=== PATIENT | female | born 1965 | race Caucasian/White ===

== ENCOUNTER 2022-03-01 15:45 | Outpatient (CLI) | payer OTHER, SELFPAY ==
--- NOTE | 2022-03-01 16:00 | CRLHL7_ITS ---
For Patients: As a result of the Century Cures Act, medical imaging exams and procedure reports are released immediately into your electronic medical record. You may view this report before your referring provider. If you have questions, please contact your health care provider. INDICATION: Postmenopausal bleeding TECHNIQUE: Ultrasound pelvis transabdominal and transvaginal for better assessment or to better visualize the endometrium. Real time sonographic images with Spectral and color Doppler imaging of the ovaries were obtained. COMPARISON: None FINDINGS: Uterus: 9.0 centimeter x 4.9 centimeter x 5.5 centimeter normal echotexture of the myometrium. No masses. Endometrium: Transvaginal imaging was performed to better evaluate the endometrium. 4 millimeters in thickness. No sign of endometrial mass or fluid. Right ovary: Not visualized Left ovary: Not visualized. Cul-de-sac: No significant free fluid. IMPRESSION: Unremarkable pelvic ultrasound. The ovaries are not visualized. Dictated by Camacho Pollard MD @ 03/01/2022 4:53:41 PM (Electronically Signed)
== END 2022-03-01 15:46 | disposition home or self-care (01) ==
PROVIDERS: Visit Provider Obstetrics & Gynecology
DX: N95.0 Postmenopausal bleeding (principal)
CPT/HCPCS: 76830; 76856

== ENCOUNTER 2022-08-27 08:11 | Day surgery (SDC) | payer OTHER, SELFPAY ==
[2022-08-26 12:44] VITALS: BP 144/81; PULSE 56; RESP 16; TEMP 35.8
[2022-08-27] VITALS (26 sets, daily range): BP systolic 77–141; BP diastolic 50–86; PULSE 40–89; RESP 16–100; TEMP 35.8–37.1; O2SAT 96–100; BMI 28.8
[2022-08-27] MEDS: CELECOXIB 200 MG CAPSULE PO (08:34)
[2022-08-27] MEDS: OXYCODONE (CR) 10 MG TAB.ER.12H PO (08:34)
[2022-08-27] MEDS: LACTATED RINGERS 1000 ML 1,000 ML 100 ML IV (08:35)
[2022-08-27] MEDS: ACETAMINOPHEN 500 MG TABLET 1000 MG PO ×3 (08:51→21:56)
[2022-08-27] MEDS: SODIUM CHLORIDE 0.9 % (FLUSH) 10 ML SYRINGE IVF (08:51)
[2022-08-27] MEDS: fentaNYL 100 MCG/2 ML inj IVP (09:28)
[2022-08-27] MEDS: MIDAZOLAM HCL 1 MG/ML inj IVP (09:28)
--- NOTE | 2022-08-27 09:32 | SUR.PREOP ---
TIME?OUT:?09 PT/RN/MDA?VERIFICATION?OF?SURGICAL?SITE left Knee,?PROCEDURE nerve block,?AND?CONSENT OBTAINED?PRIOR?TO?INVASIVE?PROCEDURE.
--- NOTE | 2022-08-27 10:11 | W.ANESCHARGE ---
Anesthesia Charges Start Date/Time Anesthesia Start Date: 08/27/22 Anesthesia Start Time: 09:39 Stop Date/Time Anesthesia Stop Date: 08/27/22 Anesthesia Stop Time: 12:08
--- NOTE | 2022-08-27 10:53 | P.NB_ITS ---
Nerve Block Nerve Block Time Seen by Provider: 09:29 Date Seen: 08/27/22 Type of block requested by surgeon for post-operative analgesia: adductor canal Side: left Time out performed: Yes Verification of patient name: Yes Verification of date of : Yes Site marking: site marked Name of person performing procedure: Bj Continuous monitoring Was continuous monitoring of O2 sat, B/P, alarm security or surveillance monitor, recorded every 15 minutes?: Yes Procedure Checklist: sterile prep, needles and gloves Ultrasound guided. Images saved: Yes Medications given in 5ml increments after negative aspiration: Ropivicaine %: 0.5 mL: 20 Needle gauge: 20 Decadron (mg): 10 Precedex (mcg): 25 Patient tolerated procedure well: Yes Additional comments: Needle noted adjacent to nerve Block Charges Block Charge (with Pro Fee): Femoral Nerve Use of Ultrasound Machine for Block: Yes- US Guidance/pain block
--- NOTE | 2022-08-27 10:54 | W.PM.NB ---
Nerve Block Nerve Block Time Seen by Provider: 09:29 Date Seen: 08/27/22 Type of block requested by surgeon for post-operative analgesia: geniculars Side: left Time out performed: Yes Verification of patient name: Yes Verification of date of : Yes Site marking: site marked Name of person performing procedure: Bj Continuous monitoring Was continuous monitoring of O2 sat, B/P, hand thermal cutter, recorded every 15 minutes?: Yes Procedure Checklist: sterile prep, needles and gloves Medications given in 5ml increments after negative aspiration: Ropivicaine %: 0.5 mL: 9 Needle gauge: 25 Patient tolerated procedure well: Yes Block Charges Block Charge (with Pro Fee): Genicular Nerve Block Use of Ultrasound Machine for Block: No
--- NOTE | 2022-08-27 11:05 | CRLHL7_ITS ---
For Patients: As a result of the Cures Act, medical imaging exams and procedure reports are released immediately into your electronic medical record. You may view this report before your referring provider. If you have questions, please contact your health care provider. Indication: postop TKA Technique: Two views left knee Findings/Impression: Hardware from a left total knee arthroplasty is in satisfactory position. Bone alignment is normal. No sign of acute fracture. Postop changes are within normal limits. Dictated by Camacho Goldman MD @ 08/27/2022 12:49:40 PM (Electronically Signed)
--- NOTE | 2022-08-27 11:07 | P.ORPRC_ITS ---
Procedure Note Date of procedure: 08/27/22 Procedure: PREOPERATIVE DIAGNOSIS: Left knee osteoarthritis POSTOPERATIVE DIAGNOSIS: Left knee osteoarthritis NAME OF OPERATION: Left total knee arthroplasty SURGEON: Mo Bazan MD STOCKROOM SELECTOR: Sarah Powell PA-C, ARVIND Conklin ANESTHESIA: Spinal ESTIMATED BLOOD LOSS: 0 mL COMPLICATIONS: None SPECIMENS: None DRAINS: None PREOPERATIVE ANTIBIOTICS: Ancef 2 grams IMPLANTS: 1. J&J Attune # 5 posterior stabilized femur 2. # 5 fixed-bearing tibia 3. # 5 posterior stabilized, 8 mm fixed-bearing polyethylene 4. 38 patella INDICATIONS: The patient is a 56-year-old with a longstanding history of severe, unrelenting left knee pain secondary to end-stage (grade IV) left knee osteoarthritis. Despite appropriate nonoperative management, including activity modification, anti-inflammatories, [id number] pain medication, bracing, p hysical therapy, and injections they continue to have pain and disability. Operative intervention was offered. The risks, benefits and expected outcomes were discussed in detail. These included but were not limited to: Infection, bleeding, injury to blood vessel or nerve, venous thromboembolism. All questions were answered to their satisfaction. Use of an volunteer services assistant was necessary throughout the case for patient positioning and safety, soft tissue retraction, and closure. PROCEDURE: Spinal anesthesia was administered. The patient was placed supine on the operating table. The volunteer services assistant made sure the patient was positioned appropriately. The lower extremity was prepped and draped in the usual sterile fashion. The limb was exsanguinated with the Dominic bandage. The pneumatic tourniquet was inflated to 300 mmHg. A standard anterior incision was made with the knee in flexion. Subcutaneous dissection was sharply taken through fascial layer #1. Full-thickness medial and lateral flaps were elevated. The volunteer services assistant retracted the soft tissues and protected them throughout the case. A standard medial parapatellar approach was made. The patella was everted. The infrapatellar fat pad was preserved. The menisci and cruciate ligaments were sharply d?brided. Marginal osteophytes were d?brided with the rongeur. The drill was used to penetrate the femoral canal. The canal was aspirated and irrigated with pulse lavage. The intramedullary femoral guide was placed for a 5-degree valgus cut, removing 12 mm off the distal femur. The saw was used to make the cut. Whitesides line and the trans epicondylar axis were marked. The femoral sizing guide was pinned onto the distal femur. Three degrees of external rotation nicely parallels the transepicondylar axis. Pins were placed for posterior referencing. The four-in-one cutting guide was pinned onto the distal femur. The anterior, posterior, and chamfer cuts were made. The volunteer services assistant protected the collateral ligaments. The box cutting guide was pinned. The box cuts were made. The boxed trial was placed and was an excellent fit. Drill holes for the lugs were made. Attention was then turned to the proximal tibia. The extramedullary tibial guide was placed for a neutral varus/valgus cut with 5 degrees of posterior slope, removing 2 mm based off the medial tibial surface. The volunteer services assistant protected the collateral ligaments and the neurovascular bundle. The saw was used to make the cut. Trial components were placed. The knee was nicely balanced in both flexion and extension. The trial components were removed. The tray was placed in appropriate rotation, parallel to our tibial cutting pins. It was pinned by the volunteer services assistant and the drill and the punch were used. The tray was removed. The punch was used again. We placed a bone plug in the femoral canal. Attention was then turned to the patella. [place] patellar thickness was 25 mm. The lobster claw resection guide was used with the 9.5 mm sherly. The saw was used to make the cut. Drill holes were made by the volunteer services assistant. The trial was placed and was an excellent fit. Cancellous surfaces were irrigated with pulse lavage and thoroughly dried by the volunteer services assistant. We cemented the tibial component, then the femoral component. We impacted the 8 mm polyethylene onto the tibial tray. The knee was brought into full extension. We then cemented the patellar component. Excessive cement was removed. The cement was allowed to harden. The knee was taken through a range of motion and was found to be nicely balanced in both flexion and extension. The patella tracks centrally. The volunteer services assistant did a three minute dilute Betadine solution soak. The volunteer services assistant irrigated the wound with 3 liters of normal saline via pulse lavage. The volunteer services assistant reapproximated the extensor mechanism with #1 Vicryl in an interrupted [id number] fashion. The volunteer services assistant then ran the extensor mechanism with a #1 PDO Stratafix. The volunteer services assistant closed the subcutaneous tissues with a 3-0 Stratafix and the skin with a running 3-0 Stratafix in a subcuticular fashion. Glue was used to seal the skin. The volunteer services assistant placed a dry dressing, LUCHO stocking, and Polar Care. Sponge and needle counts were correct x2. The patient tolerated the procedure well. There were no apparent complications. They were carefully transferred to the hospital bed and taken to the postanesthesia care unit in satisfactory condition. PLAN: The patient will be mobilized with physical therapy. Makes will be used for DVT prophylaxis. They will be discharged to home once medically appropriate.
--- NOTE | 2022-08-27 12:06 | W.ANESCHARGE ---
Anesthesia Charges Start Date/Time Anesthesia Start Date: 08/27/22 Anesthesia Start Time: 09:39 Stop Date/Time Anesthesia Stop Date: 08/27/22 Anesthesia Stop Time: 12:08
[2022-08-27] MEDS: LACTATED RINGERS 1000 ML 1,000 ML IV (13:20)
--- NOTE | 2022-08-27 13:23 | P.IMCN_ITS ---
Date of Consult Patient: Other ([place], [place]) Consult date: 08/27/22 Requesting Physician: Orthopedics ([place]) Primary Care Provider: Francisca Lopez MD Consult Narrative Reason for consult: medical management, h/o anemia Narrative: Glenna Santacruz is a 56 year old female who underwent an elective left total knee arthroplasty for severe osteoarthritis today by Dr. Bazan. In the PACU she tells me she had been feeling well and had very little pain, but now it is starting to ramp up a bit. Upon sitting up in the bed here in [facility], he suddenly felt lightheaded. Her systolic blood pressure had been running in the 110s and was noted to have dropped into the 50s to 70s and her heart rate had dropped down into the 40s. Her nurse laid her back down and her systolic blood pressure has improved into the 110s again and her heart rate is now in the high 50s. She is already feeling better, back to herself. Review of Systems Status of ROS: Reports: 10 or more systems reviewed and unremarkable except as noted in History and below PFSH PFS Medical History (Updated 08/27/22 @ 13:45 by Deanna Monroe MD) Postmenopausal bleeding ?N95.0 - Postmenopausal bleeding (ICD-10) Chronic GERD ?K21.9 - Gastro-esophageal reflux disease without esophagitis (ICD-10) Anemia ?D64.9 - Anemia, unspecified (ICD-10) Surgical History (Updated 08/27/22 @ 13:43 by Deanna Monroe MD) H/O colonoscopy ?Z98.890 - Other specified postprocedural states (ICD-10) Status post left knee replacement (08/27/22) ?Z96.652 - Presence of left artificial knee joint (ICD-10) Status post right knee replacement (11/07/20) ?Z96.651 - Presence of right artificial knee joint (ICD-10) Family History Mother Brain aneurysm Cancer High blood pressure Hypothyroidism Father Diabetes Heart disease Emphysema lung COPD (chronic obstructive pulmonary disease) Parkinsons disease Myocardial infarction High blood pressure High cholesterol Maternal Grandfather Myocardial infarction Paternal Grandfather Cancer Myocardial infarction Social History (Updated 08/27/22 @ 13:40 by Deanna Monroe MD) Narrative: Life partner of 30 years, Jose, they recently got engaged. Quit smoking 13 years ago. About 10 pack year h/o tob use. EtOH: social 2-3 drinks on the weekends. Denies recreational drug use. Smoking Status: Former smoker What tobacco products do you use: cigarettes Smoking packs per day: 0.33 Smoking cigarettes per day: 6.6 Years smoked: 25 Smoking pack-years: 8.25 Smoking quit date/years: <= 15 years ago Do you use any of these nicotine containing products: None Second hand tobacco smoke exposure: No How often do you have a drink containing alcohol: 2-4 times a month Alcohol type: wine and hard liquor How many standard drinks containing alcohol do you have on a typical day: 1 or 2 How often do you have six or more drinks on one occasion: Never AUDIT-C Alcohol total score: 2 Non-prescribed substance use: denies use Caffeine: Yes (coffee, 2 cups/day; occ pop) service: No Meds Home Medications and Allergies Home Medications Medication Instructions Recorded Confirmed Type acetaminophen 500 mg tablet 500 mg PO Q4H PRN 11/02/21 08/27/22 History magnesium oxide 400 mg (241.3 mg 400 mg PO DAILY 11/02/21 08/27/22 History magnesium) tablet multivitamin 1 tab PO QAM 11/02/21 08/27/22 History aspirin 81 mg tablet,delayed 81 mg PO .qhs 11/05/21 08/27/22 History release famotidine 10 mg tablet 10 mg PO DAILY 08/26/22 08/27/22 History ibuprofen 200 mg tablet 200 mg PO PRN PRN 08/26/22 08/27/22 History Allergies Allergy/AdvReac Type Severity Reaction Status Date / Time No Known Allergies Allergy Verified 08/27/22 08:38 Exam Narrative: Exam Narrative: General: No acute distress. Awake alert oriented x3. I was in the room fairly immediately after this episode began and she appeared pale at 1st, but her color returned rapidly. HEENT: Normocephalic atraumatic, pupils equally round and reactive to light and accommodation. Oropharynx clear. Mucous membranes are slightly dry. Cardiovascular: Bradycardic, regular. No murmurs, gallops, or rubs. Chest: No increased work of breathing. Clear to auscultation bilaterally. No crackles or wheezes. Abdomen: Bowel sounds present. Soft, nondistended, nontender. No hepatosplenomegaly or masses. Extremities: Left knee bandage is clean, dry, and intact. There is no ecchymosis, no edema. Skin: No mottling. No jaundice, no rashes. Neuro: Grossly intact. No focal deficits. Const: Vital Signs, click to edit/add: Vital Signs - 24 hr 08/27/22 08:43 08/27/22 09:28 08/27/22 09:34 Temperature 97.2 F L Pulse Rate 84 68 57 L Respiratory Rate 16 16 16 Blood Pressure 134/74 140/78 H 141/77 H Pulse Oximetry 98 100 100 Oxygen Delivery Me thod Room Air Nasal Cannula Nasal Cannula Oxygen Flow Rate 2 2 08/27/22 12:05 08/27/22 12:10 08/27/22 12:15 Temperature 98.5 F Pulse Rate 61 56 L 53 L Respiratory Rate 16 16 18 Blood Pressure 113/73 111/79 106/86 Pulse Oximetry 96 97 98 Oxygen Delivery Me thod Room Air Oxygen Flow Rate 08/27/22 12:20 08/27/22 12:25 08/27/22 12:30 Temperature 97.5 F L Pulse Rate 53 L 51 L 58 L Respiratory Rate 16 17 16 Blood Pressure 105/77 102/81 114/71 Pulse Oximetry 100 98 98 Oxygen Delivery Me thod Room Air Oxygen Flow Rate 08/27/22 12:35 Temperature 97.5 F L Pulse Rate 63 Respiratory Rate 18 Blood Pressure 114/70 Pulse Oximetry 100 Oxygen Delivery Me thod Room Air Oxygen Flow Rate Labs Labs: Ordering Physician: Mo Bazan M.D. Date of Service: 08/27/22 Procedure(s): XR knee LT 2V Accession Number(s): [id number] cc: Francisca Lopez M.D.; Mo Bazan M.D.~ For Patients: As a result of the 21st Century Cures Act, medical imaging exams and procedure reports are released immediately into your electronic medical record. You may view this report before your referring provider. If you have questions, please contact your health care provider. Indication: postop TKA Technique: Two views left knee Findings/Impression: Hardware from a left total knee arthroplasty is in satisfactory position. Bone alignment is normal. No sign of acute fracture. Postop changes are within normal limits. Dictated by Camacho Goldman MD @ 08/27/2022 12:49:40 PM (Electronically Signed) Assessment and Plan Assessment and plan (1) Status post left knee replacement: Problem comment: - 08/27/22 - continue routine postop cares - VTE prophylaxis with twice a day low-dose aspirin, Jan's toes, and in the hospital, SCDs Status: Acute (2) Osteoarthritis of left knee: Status: Chronic (3) Gastroesophageal reflux disease: Problem comment: - continue OTC famotidine Status: Chronic (4) Vasovagal episode: Problem comment: - sudden episode of hypotension and bradycardia causing lightheadedness while sitting up postoperatively, this resolved quickly, most consistent with vasovagal episode. - I have ordered a fluid bolus and monitor on telemetry and frequent postop blood pressures Status: Acute
[2022-08-27] MEDS: LACTATED RINGERS 1000 ML 1,000 ML 75 ML IV (14:27)
[2022-08-27] MEDS: CEFAZOLIN 2 GM in 0.9 % SODIUM CHLORIDE Mini-bag 100 ML IVPB ×2 (16:17→23:28)
--- NOTE | 2022-08-27 16:30 | PC.NURSE ---
Pt arrived to Med/Surg room 280 in her hospital bed from PACU at 1244 s/p LTKA with Dr. Bazan. Initial assessment from PACU completed by primary RN. Pt A& O with significant other Jose present at bedside. Please see frequent post op Vs per protocol. Pt's bp fell to 77/50 with slight elevation of bed at 1300 with HR of 40. RN recked VS in 3 minutes @ 1303 and bp 58/40 and HR 37, HOB down, pt remained A & O, talkative. Dr. Monroe called into room d/to hypotensive episode for assessment of pt. BP @ 1307 70/40 with HR of 40. New order to initiate 1000 cc LR bolus over 1 hour with current maintenance fluids. BP slowed a steady increase after bolus, however at 1430 during PT evaluation pt's bp was 81/50 during exercises, pt was incontinent of urine, linens changed per [employer] and [facility] PT, pericares provided. Recheck of bp @ 1445 was 107/79. Report provided to oncoming shift who will monitor BP readings on this patient. LR @ 75cc/hr infusing. Advanced to regular diet. Knee control on bed locked out,bed alarm engaged per safety protocol, bilateral teds and plexipulses removed prior to shift change@ 1445pm. Cryocuff in place and mepilex drsg remains CDI. Pt did exercises with PT, she was unable to get up into recliner d/to complaint of numb buttocks an drop in BP.
[2022-08-27] MEDS: OXYCODONE 5 MG TABLET PO ×2 (16:33→21:57)
[2022-08-27] MEDS: SENNOSIDES 1 TAB TABLET 2 TAB PO (21:57)
[2022-08-27] MEDS: ASPIRIN 81 MG TABLET EC PO (21:58)
--- NOTE | 2022-08-27 22:47 | PC.NURSE ---
End of Shift: Pt pleasant and cooperative throughout shift. Incontinent with urine while regaining feeling back post op. Tolerated ambulation with walker, gait belt, and SBA x 1 well to and from restroom. One episode of vomiting during ambulation to bathroom. BP 120/71 once returned to bed. Nausea subsided shortly after. Pain well-controlled with oxycodone 5mg and tylenol ranging between 4-7/10.
[2022-08-28] MEDS: ACETAMINOPHEN 500 MG TABLET 1000 MG PO ×2 (02:31→09:02)
[2022-08-28] MEDS: OXYCODONE 5 MG TABLET PO ×2 (02:32→06:16)
[2022-08-28 02:56] VITALS: BP 130/63; PULSE 68; RESP 16; TEMP 36.6; O2SAT 99
--- NOTE | 2022-08-28 05:43 | PC.NURSE ---
Pt alert and oriented x3. Afebrile. Pt denies, SOB, chest pain, and N/V. Pt reports 5/10 pain in left knee, pain managed with scheduled medications. Pt left knee dressing is CDI. Pt is up SBA with walker and gait belt. Pt is tolerating a regular diet and voiding. Pt slept throughout most of night. Night uneventful.?
[2022-08-28 06:28] VITALS: BP 121/66; PULSE 60
[2022-08-28 06:29] VITALS: BP 124/66; PULSE 64
[2022-08-28 06:30] VITALS: BP 101/55; PULSE 72
[2022-08-28 07:19] LABS: Basophils Percent Auto 0.1 % (0.0-3.0); Eosinophils Percent Auto 0.1 % (0.0-7.0); Hematocrit 38.2 % (33.0-51.0); Hemoglobin* 12.5 gm/dL (12.0-16.0); Immature Granulocytes Pct Auto 0.2 %; Lymphocytes Percent Auto 13.9 % (20-44); Mean Corpuscular HGB Conc 33 gm/dL (32-36); Mean Corpuscular Hemoglobin 30 pg (26-34); Mean Corpuscular Volume 91 fL (80-100); Monocytes Percent Auto 7.8 % (0.0-11.0); Neutrophils Percent Auto 77.9 % (42.0-72.0); Platelet Count* 310 K/uL (140-440); RDW Coefficient of Variation % 13.1 % (11.5-15.5); Red Blood Count 4.21 m/uL (4.00-5.20); White Blood Count* 16.63 K/uL (4.50-11.00)
[2022-08-28 07:32] LABS: Slide Review Reflex No
[2022-08-28 07:46] LABS: Potassium* 4.4 mmol/L (3.6-5.1); Sodium* 135 mmol/L (135-149)
[2022-08-28 07:49] LABS: Blood Urea Nitrogen* 18 mg/dL (7-30); Creatinine* 0.7 mg/dL (0.5-1.5); Est. Creatinine Clearance* 92.68; Estimated Glomerular Filt Rate 103 ml/min
[2022-08-28 07:51] LABS: INR 1.05 (0.91-1.10); Prothrombin Time 14.3 Seconds
[2022-08-28 08:00] VITALS: BP 108/58; PULSE 84; RESP 16; TEMP 36.9; O2SAT 100
--- NOTE | 2022-08-28 08:23 | P.ORPN_ITS ---
Subjective Subjective Time Seen by Provider: 07:10 Date Seen: 08/28/22 Principal diagnosis: Status post left knee replacement 08/27/2022 Interval history: Glenna is fairly comfortable this morning, however she states the left knee feels more painful than the right needed after right knee replacement. She has had dizziness, vomiting since surgery. Vomiting was yesterday After going into the bathroom, this morning she the lightheadedness continued with ambulation. Ortho Exam Narrative Exam Narrative: Alert and oriented x3. Patient is in no acute distress. Converses without labored breathing. Hearing is grossly intact. Ambulates with a Walker. Examination of the left knee shows mild effusion. Mild soft tissue edema. Dr mcginnis is clean, dry, and intact. Bilateral calves are soft and nontender. CMS intact left lower extremity. No significant ecchymosis. Quad strength 4/5. Of note right quad is stronger than the left This morning. Nontender to light palpation about the knee. Const Vital Signs, click to edit/add: Vital Signs - 24 hr 08/27/22 08:43 08/27/22 09:28 08/27/22 09:34 Temperature 97.2 F L Pulse Rate 84 68 57 L Pulse Rate [Right Pulse Oximeter] Respiratory Rate 16 16 16 Blood Pressure 134/74 140/78 H 141/77 H Blood Pressure [Left Arm] Pulse Oximetry 98 100 100 Oxygen Delivery Method Room Air Nasal Cannula Nasal Cannula Oxygen Flow Rate 2 2 08/27/22 12:05 08/27/22 12:10 08/27/22 12:15 Temperature 98.5 F Pulse Rate 61 56 L 53 L Pulse Rate [Right Pulse Oximeter] Respiratory Rate 16 16 18 Blood Pressure 113/73 111/79 106/86 Blood Pressure [Left Arm] Pulse Oximetry 96 97 98 Oxygen Delivery Method Room Air Oxygen Flow Rate 08/27/22 12:20 08/27/22 12:25 08/27/22 12:30 Temperature 97.5 F L Pulse Rate 53 L 51 L 58 L Pulse Rate [Right Pulse Oximeter] Respiratory Rate 16 17 16 Blood Pressure 105/77 102/81 114/71 Blood Pressure [Left Arm] Pulse Oximetry 100 98 98 Oxygen Delivery Method Room Air Oxygen Flow Rate 08/27/22 12:35 08/27/22 12:37 08/27/22 12:44 Temperature 97.5 F L 96.5 F L Pulse Rate 63 Pulse Rate [Right Pulse Oximeter] 55 L 40 L Respiratory Rate 18 16 16 Blood Pressure 114/70 Blood Pressure [Left Arm] 107/79 77/50 L Pulse Oximetry 100 98 99 Oxygen Delivery Method Room Air Room Air Room Air Oxygen Flow Rate 08/27/22 13:30 08/27/22 13:45 08/27/22 14:00 Temperature Pulse Rate Pulse Rate [Right Pulse Oximeter] 51 L 54 L 56 L Respiratory Rate 16 16 16 Blood Pressure Blood Pressure [Left Arm] 120/67 126/78 139/68 Pulse Oximetry 100 100 99 Oxygen Delivery Method Room Air Room Air Room Air Oxygen Flow Rate 08/27/22 14:30 08/27/22 14:45 08/27/22 15:00 Temperature 97 F L 97.4 F L Pulse Rate Pulse Rate [Right Pulse Oximeter] 41 L 56 L 74 Respiratory Rate 16 16 18 Blood Pressure Blood Pressure [Left Arm] 81/50 L 107/79 127/73 Pulse Oximetry 99 100 Oxygen Delivery Method Room Air Room Air Room Air Oxygen Flow Rate 08/27/22 15:00 08/27/22 16:00 08/27/22 16:32 Temperature 97.5 F L 98.5 F Pulse Rate Pulse Rate [Right Pulse Oximeter] 72 Respiratory Rate 18 Blood Pressure Blood Pressure [Left Arm] 126/63 Pulse Oximetry 99 100 Oxygen Delivery Method Room Air Oxygen Flow Rate 08/27/22 17:00 08/27/22 18:00 08/27/22 19:00 Temperature 98 F 98.1 F 98.8 F Pulse Rate Pulse Rate [Right Pulse Oximeter] 76 80 89 Respiratory Rate 18 100 H 18 Blood Pressure Blood Pressure [Left Arm] 128/77 122/70 120/71 Pulse Oximetry 100 98 Oxygen Delivery Method Room Air Room Air Room Air Oxygen Flow Rate 08/27/22 21:56 08/27/22 23:00 08/27/22 23:00 Temperature 98.1 F Pulse Rate Pulse Rate [Right Pulse Oximeter] 74 Respiratory Rate 18 Blood Pressure Blood Pressure [Left Arm] Pulse Oximetry 98 Oxygen Delivery Method Oxygen Flow Rate 08/27/22 23:20 08/28/22 02:56 08/28/22 06:28 Temperature 97.7 F 97.9 F Pulse Rate Pulse Rate [Right Pulse Oximeter] 74 68 60 Respiratory Rate 16 16 Blood Pressure Blood Pressure [Left Arm] 135/75 130/63 121/66 Pulse Oximetry 98 99 Oxygen Delivery Method Room Air Room Air Oxygen Flow Rate 08/28/22 06:29 08/28/22 06:30 Temperature Pulse Rate Pulse Rate [Right Pulse Oximeter] 64 72 Respiratory Rate Blood Pressure Blood Pressure [Left Arm] 124/66 101/55 L Pulse Oximetry Oxygen Delivery Method Oxygen Flow Rate Assessment and Plan Assessment and plan (1) Status post left knee replacement: Problem details: - 08/27/22 - continue routine postop cares - VTE prophylaxis with twice a day low-dose aspirin, Jan's toes, and in the hospital, SCDs Status: Acute Assessment and Plan: Glenna is doing well this morning, however continues to have light headedness with ambulation. Her breakfast arrive while I was in the room and she does have Freg[place] on her plate. The salt in the fregoso may help with her lightheadedness. will see how her morning goes with physical therapy. If her dizziness improves, She will likely discharge to home today. DVT prophylaxis includes aspirin 81 mg twice daily x1 month, Jan stockings x1 month may remove for 1 hr per day, frequent ambulation Remove dressing in 1 week. Observe wound and phone Orthopedics with any questions or concerns Return to clinic in 1 week for a wound check Return to clinic in [address] Bazan Minimize narcotic use. Wean off and discontinue soon as possible. Activities as tolerated. No strenuous activity. Outpatient physical therapy as scheduled. Ice and elevate the operative extremity. No restriction on ice. (2) Osteoarthritis of left knee: Status: Chronic (3) Gastroesophageal reflux disease: Problem details: - continue OTC famotidine Status: Chronic (4) Vasovagal episode: Problem details: - sudden episode of hypotension and bradycardia causing lightheadedness while sitting up postoperatively, this resolved quickly, most consistent with vasovagal episode. - I have ordered a fluid bolus and monitor on telemetry and frequent postop blood pressures Status: Acute
[2022-08-28] MEDS: MAGNESIUM OXIDE 400 MG TABLET PO (08:46)
[2022-08-28] MEDS: SENNOSIDES 1 TAB TABLET 2 TAB PO (08:46)
[2022-08-28] MEDS: FAMOTIDINE 20 MG TABLET PO (08:46)
[2022-08-28] MEDS: ASPIRIN 81 MG TABLET EC PO (08:46)
[2022-08-28] MEDS: MULTIVITAMIN/MINERALS 1 TABLET 1 TAB PO (08:46)
[2022-08-28 11:03] VITALS: BP 114/70; PULSE 63; RESP 16; TEMP 36.9
--- NOTE | 2022-08-28 13:06 | PC.NURSE ---
Casandra by Angelica leiva PA, OT, PT and Dr. Ferrell. Pain managed with oxycodone and scheduled tylenol. Please see eMar for meds provided on day shift. IV discontinued. Pt and leisa Garcia verbalized understanding of d/c diagnosis, home meds, pain management plan, f/up appt and sx to report urgently to physician. Adequate I & O, dizziness subsided after patient drank powerade. Discharged via w/c with all personal belongings to own home with kory Garcia as transportation at 1153.
== END 2022-08-28 11:53 | disposition home or self-care (01) ==
LOC: OR 08:12 → MEDSURG 12:21
PROVIDERS: PCP Family Medicine; Visit Provider Orthopaedic Surgery
PROC: (CPT 27447; principal; 2022-08-27 10:30)
DX: M17.12 Unilateral primary osteoarthritis, left knee (principal); G89.18 Other acute postprocedural pain; R55 Syncope and collapse; R42 Dizziness and giddiness; I95.81 Postprocedural hypotension; R00.1 Bradycardia, unspecified; K21.9 Gastro-esophageal reflux disease without esophagitis
CPT/HCPCS: 27447; 01402; 36415; 64447; 64454; 73560; 76942; 82565; 84132; 84295; 84520; 85025; 85610; 97110; 97116; 97162; 97165; 97530; A9153; A9270; C1776; J0690; J1100; J2250; J2704; J2795; J3010; J7120

== ENCOUNTER 2022-10-25 10:00 | Outpatient (RCR) | payer OTHER, SELFPAY ==
--- NOTE | 2022-09-26 13:51 | PT.OPDNX ---
[facility] Daily Note PROGRESS NOTE -10TH VISIT PT [facility] Daily Note Start: 08/13/22 12:43 Freq: Status: Active Protocol: Document 09/26/22 09:45 MARY (Rec: 09/26/22 13:51 MARY [id number]) E-signed By Hua Ruggiero DPT PT OP Daily Progress Note Visit Information Note Type Daily Note,Recert/Progress Note Visit Number 10 Insurance Information Insurance Name [employer],[facility] Medical Diagnosis L tka Treating Diagnosis L tka knee pain muscle weakness Referring MD lilia Bazan Subjective Subjective Comes in saying she is dealing with more knee stiffness, but feels like that is the same as normal. Pain Comments -10/24 since being home from surgery Home Exercise Home Exercise Comments [id number] Objective Other/Pertinent Objective Obj knee ROM 2-104- with op STEP UPS 8 INCH: REQUIRES INCREAED UE ASSIST TO COMPLETE , DECREASED CONTROL WITH ECCENTRIC LOWERING SIT TO STANDS: INCREASED TRUNK LEAN FWD , WEIGHT SHIFTS OVER TO HER NON SURGICAL LEG TO COMPLETE . NEEDED CUEING TO AVOID USING UE USE GAIT: USES SPC WITH DECREASED PACE AND ANTALGIC GAIT PATTERN POST TX Patient Instructed in Risks/Benefits Yes Therapeutic Exercise Therapeutic Exercise Minutes (minutes) 25 Therapeutic Exercise: To Restore Bike x 8 min for rom Functional Status tke grn tb x 20 standing hip abd grn tb x 12 B standing hip ext grn tb x 12 B LAQ grn tb adding 5 sec holds x 12 B IT Band stretch 5 x 15 sec holds marching with grn tb x 10 B Therapeutic Activity Therapeutic Activity Minutes (minutes) 15 Therapeutic Activities Comments 8 inch step ups 2x 12 , sit to stand 3x6-12 - progressing on staggering stance Treatment Minutes Untimed Code Treatment Minutes 5 Timed Code Treatment Minutes 40 Total Treatment Time 45 Billing Units Therapeutic Activity Units 1 Therapeutic Exercise Units 2 Assessment/Impression Assessment/Impression Patient is a 56 year old female that presents with L TKA. Patient has shown improvement in PT demonstrating decreased pain, increased range of motion, increased strength, and increased tolerance to activity from initial visits. Still is showing limitations with single leg strength, stability, gait abnormalities as she relies on a SPC still. . Patient would benefit from continued skilled PT services to address these issues and to maximize function. Plan of Care Physical Therapy Goals TKA GOALS STG (within 6 weeks ) 1) Pt will improve knee AROM at least 0 to 90 for improved sit to stand transfers MET 2) Pt will demonstrate negative extensor lag during straight leg raise exercise with ability to complete at least 15 reps with 5 sec hold to improve strength for ambulation 3) Patient will demonstrate/ report ability to walk for 20- 30 minutes w/SPC with pain level <1/10, to allow for community and household ambulation. LTG: (within 12 weeks) 1) Pt will be indep with HEP for fpc management of pain/symptoms 2) Pt will improve knee AROM at least 0 to 120 for improved sit to stand transfers 3) Patient will ascend/descend at least 12 steps using single rail and reciprocal pattern to improve ease of mobility at home/community 4) Patient will demonstrate/ report ability to walk for 45- 60 minutes w/o AD with pain level <1/10, to allow for community and household ambulation. Daily Plan of Care Continue per POC Discharge Note Date of First Visit for Therapy 08/13/22 Initial Primary Functional Limitations walking, standing lifting carry Initial Pain Level 8/10 Interventions Provided During Treatment Gait Training,Joint Mobilization,Manual Therapy, Neuromuscular Re-Ed, Therapeutic Activities, Therapeutic Exercise,Self Care /Home Management
== END 2023-02-22 23:59 | disposition home or self-care (01) ==
PROVIDERS: Visit Provider Orthopaedic Surgery
DX: M17.12 Unilateral primary osteoarthritis, left knee (principal); Z96.652 Presence of left artificial knee joint; M62.81 Muscle weakness (generalized); M25.569 Pain in unspecified knee; Z51.89 Encounter for other specified aftercare
CPT/HCPCS: 97110; 97140; 97161; 97530